=== PATIENT | female | born 2000 | race Caucasian/White ===

== ENCOUNTER 2018-04-27 19:30 | Emergency (ER) | payer OTHER ==
[~2018-04-27] VITALS: Ht 160 cm; Wt 63.6 kg
[2018-04-27 19:34] VITALS: BP 119/56
[2018-04-27] MEDS ORDERED: TAMIFLU 75MG75 MG PO (20:35)
[2018-04-27] MEDS ORDERED: ZOFRAN 4MG T4 MG/TAB PO (20:37)
[2018-04-27 21:40] VITALS: PULSE 105; TEMP 99
== END 2018-04-27 21:48 | disposition home or self-care (01) ==
LOC: COL.ER 19:30
DX: J10.1 Influenza due to other identified influenza virus with other respiratory manifestations (principal)
CPT/HCPCS: J2405